=== PATIENT | male | born 1990 | race Hispanic/Latino ===

== ENCOUNTER 2017-05-07 03:02 | Emergency (ER) | payer SELFPAY ==
[2017-05-07 03:10] VITALS: BP 140/87; PULSE 111; RESP 16; TEMP 98; O2SAT 100
--- NOTE | 2017-05-07 03:40 | ED PDOC ---
HPI: General Adult Time Seen by Provider: 05/07/17 03:18 Chief Complaint (Nursing): Medical Clearance Chief Complaint (Provider): Med clearance History Per: Patient Additional Complaint(s): Pt brought in by [facility] for medical and psychiatric clearance. Pt reports he just has a headache and needs 2 Motrin, Pt laughing and reports he does not need to be in the ED for this. Past Medical History Reviewed: Nursing Documentation, Vital Signs Vital Signs: Last Vital Signs Temp 98 F 05/07/17 03:07 Pulse 111 H 05/07/17 03:07 Resp 16 05/07/17 03:07 BP 140/87 05/07/17 03:07 Pulse Ox 100 05/07/17 03:07 - Medical History PMH: No Chronic Diseases - Surgical History Surgical History: No Surg Hx - Family History Family History: States: No Known Family Hx - Living Arrangements Living Arrangements: With Family - Social History Current smoker - smoking cessation education provided: Yes Alcohol: Social Drugs: Cannabis - Allergies Allergies/Adverse Reactions: Allergies Allergy/AdvReac Type Severity Reaction Status Date / Time No Known Allergies Allergy Verified 05/07/17 03:09 Review of Systems ROS Statement: Except As Marked, All Systems Reviewed And Found Negative Neurological: Positive for: Headache Physical Exam - Reviewed Nursing Documentation Reviewed: Yes Vital Signs Reviewed: Yes - Physical Exam Appears: Positive for: Well, Non-toxic, No Acute Distress Head Exam: Positive for: ATRAUMATIC, NORMAL INSPECTION, NORMOCEPHALIC Skin: Positive for: Normal Color, Warm, DRY Eye Exam: Positive for: EOMI, Normal appearance, PERRL ENT: Positive for: Normal ENT Inspection Neck: Positive for: Normal, Painless ROM Cardiovascular/Chest: Positive for: Regular Rate, Rhythm Respiratory: Positive for: CNT, Normal Breath Sounds Gastrointestinal/Abdominal: Positive for: Normal Exam, Bowel Sounds, Soft Back: Positive for: Normal Inspection Extremity: Positive for: Normal ROM Neurologic/Psych: Positive for: Alert, Oriented - ECG O2 Sat by Pulse Oximetry: 100 Medical Decision Making Medical Decision Making: Medicated with Motrin 600 Crisis eval obtained, see note pt medically and psychiatrically cleared for incarceration on re-eval. neuro exam non focal, Pt reports feeling improved. Disposition - Clinical Impression Clinical Impression: Headache - Patient ED Disposition Is Patient to be Admitted: No - Disposition Disposition: Discharged/Transfer to Law Enforcement Disposition Time: 03:39 Condition: STABLE - POA Present On Arrival: None
== END 2017-05-07 04:16 | disposition home or self-care (01) ==
LOC: H.ER 03:02
DX: R51 Headache (principal)